=== PATIENT | female | born 1945 | race Caucasian/White ===

== ENCOUNTER 2018-11-11 11:58 | Emergency (ER) | payer MEDICARE ==
[2018-11-11 13:52] LABS: BILIRUBIN,URINE Negative (NEGATIVE); COLOR,URINE Yellow (YELLOW); GLUCOSE, URINE (UA) Negative (NEGATIVE); KETONES,URINE Negative (NEGATIVE); LEUKOCYTE ESTERASE ,URINE Large (NEGATIVE); NITRATE,URINE Negative (NEGATIVE); OCCULT BLOOD,URINE Negative (NEGATIVE); PH,URINE 5.5 (5.0-8.0); PROTEIN,URINE Negative (NEGATIVE); UROBILINOGEN,URINE 0.2 mg/dL (0.2-1.0)
[2018-11-11] MEDS ORDERED: MECLIZINE HCL 25 MG TABLET ONE (13:58)
[2018-11-11 14:03] LABS: BASOPHILS % (AUTO) 1.1 % (0.0-5.0); EOSINOPHILS % (AUTO) 0.4 % (0.0-8.0); HEMATOCRIT 41.7 % (36-48); LYMPHOCYTES % (AUTO) 24.6 % (21.0-51.0); MEAN CORPUSCULAR HEMOGLOBIN 29.6 pg (27.0-33.0); MEAN CORPUSCULAR HGB CONC 33.6 g/dL (32.0-36.0); MEAN CORPUSCULAR VOLUME 88.1 fL (79-99); MONOCYTES % (AUTO) 4.7 % (3.0-13.0); NEUTROPHILS % (AUTO) 69.2 % (40.0-77.0); NUCLEATED RED BLOOD CELLS 0.1 % (0.0-0.19); PLATELET COUNT (AUTO) 262 K/uL (130-400); RED BLOOD CELL COUNT(AUTO) 4.73 MIL/uL (4.00-5.50); RED CELL DISTRIBUTION WIDTH 13.3 % (11.0-15.5); WHITE BLOOD COUNT (AUTO) 7.5 K/uL (4.8-10.8)
[2018-11-11 14:04] LABS: APPEARANCE,URINE SLIGHTLY CLOUDY (CLEAR)
[2018-11-11 14:05] LABS: BACTERIA,URINE Few /HPF (None Seen); RBC,URINE 0-1 /HPF (0-1)
[2018-11-11 14:19] LABS: CREATININE 1.1 mg/dL (0.5-1.5); POTASSIUM 3.6 mmol/L (3.5-5.1)
[2018-11-11 14:21] LABS: INR 0.95 (0.85-1.15)
[2018-11-11 14:24] LABS: ALBUMIN 3.9 g/dL (3.5-5.0); BILIRUBIN,TOTAL 0.5 mg/dL (0.2-1.0); TOTAL PROTEIN, SERUM 8.1 g/dL (6.0-8.3)
[2018-11-11] MEDS ORDERED: SODIUM CHLORIDE 0.9% 1000ML 1,000 ML IV ONE (15:14)
[2018-11-11] MEDS ORDERED: DIAZEPAM 5 MG TABLET ONE (16:39)
== END 2018-11-11 18:31 | disposition home or self-care (01) ==
LOC: EDH 11:58
DX: H81.10 Benign paroxysmal vertigo, unspecified ear (principal); I10 Essential (primary) hypertension; E11.9 Type 2 diabetes mellitus without complications; E78.5 Hyperlipidemia, unspecified; Z87.442 Personal history of urinary calculi; Z98.890 Other specified postprocedural states; Z87.891 Personal history of nicotine dependence; Z88.5 Allergy status to narcotic agent
CPT/HCPCS: 36415; 70450; 71046; 72125; 80053; 81001; 82550; 83880; 84484 ×2; 85025; 85610; 85730; 93005 ×2; 99284; J7030

== ENCOUNTER 2021-03-28 22:42 | Observation (INO) | payer MEDICARE ==
[~2021-03-28] VITALS: Ht 177.8 cm; Wt 68.0 kg
[2021-03-28 22:44] VITALS: BP 140/80
[2021-03-28 23:03] LABS: HEMATOCRIT 42.5 % (36-48); MEAN CORPUSCULAR HEMOGLOBIN 30.6 pg (27.0-33.0); MEAN CORPUSCULAR HGB CONC 33.6 g/dL (32.0-36.0); MEAN CORPUSCULAR VOLUME 90.8 fL (79-99); RED BLOOD CELL COUNT(AUTO) 4.68 MIL/uL (4.00-5.50); WHITE BLOOD COUNT (AUTO) 4.7 K/uL (4.8-10.8)
[2021-03-28 23:14] LABS: CREATININE 0.9 mg/dL (0.5-1.5); POTASSIUM 3.8 mmol/L (3.5-5.1)
[2021-03-28 23:18] LABS: ALBUMIN 3.8 g/dL (3.5-5.0); BILIRUBIN,TOTAL 0.4 mg/dL (0.2-1.0)
[2021-03-29] VITALS (8 sets, daily range): BP systolic 97–137; BP diastolic 51–71
[2021-03-29] MEDS ORDERED: SOLU-MEDROL 125MG VIAL IVP ONE (01:00)
[2021-03-29] MEDS ORDERED: IPRATROPIUM/ALBUTEROL SULFATE 3 ML SOLUTION IH ONE (01:00)
[2021-03-29] MEDS ORDERED: CEFTRIAXONE 1G VIAL IVP ONE (01:00)
[2021-03-29] MEDS ORDERED: AZITHROMYCIN 500MG VIAL IVPB ONE (01:00)
[2021-03-29] MEDS ORDERED: 0.9% NACL 250ML IVPB ONE (01:00)
[2021-03-29 01:13] LABS: ABG BASE EXCESS -0.2 mmol/L (-2.0-3.0); ABG HCO3 23.3 mmol/L (21.0-28.0); ABG OXYGEN SATURATION 91.2 % (95.0-99.0); ABG PCO2 35 mmHg (32-45)
[2021-03-29 01:21] LABS: INR 0.99 (0.85-1.15); PROTHROMBIN TIME 10.8 SEC (9.6-11.6)
[2021-03-29] MEDS ORDERED: ALBUTEROL 0.083% 2.5 MG/3 ML INH IH ONE ×2 (01:30→03:00)
[2021-03-29] MEDS ORDERED: AZITHROMYCIN 500MG+NS 250ML 250 ML IV ONE (01:30)
[2021-03-29] MEDS ORDERED: LACTULOSE 20 GM/30 ML UDCUP PO PRN (03:30)
[2021-03-29] MEDS ORDERED: GUAIFENESIN-DM 200/20 MG 10 ML PO PRN (03:30)
[2021-03-29] MEDS ORDERED: NITROGLYCERIN 0.4 MG SL TAB SL PRN (03:30)
[2021-03-29] MEDS ORDERED: ONDANSETRON 4MG INJ IV PRN (03:30)
[2021-03-29] MEDS ORDERED: ACETAMINOPHEN 325 MG TAB PO PRN ×2 (03:30)
[2021-03-29] MEDS ORDERED: MAG/ALUM/SIMETH 30 ML UDCUP PO PRN (03:30)
[2021-03-29] MEDS ORDERED: ZOLPIDEM TARTRATE 5 MG TAB PO PRN (03:30)
[2021-03-29] MEDS ORDERED: GLUCAGON 1MG KIT 1 MG ML IM PRN (04:00)
[2021-03-29] MEDS ORDERED: MAGNESIUM 2GM PREMIX 50ML 50 ML IV PRN (04:00)
[2021-03-29] MEDS ORDERED: POTASSIUM CHLORIDE 20MEQ/100ML 100 ML IV PRN (04:00)
[2021-03-29] MEDS ORDERED: KCL 20 MEQ ERTAB PO PRN (04:00)
[2021-03-29] MEDS ORDERED: DEXTROSE 50%-WATER 50 ML DISP.SYRIN IV PRN (04:00)
[2021-03-29] MEDS ORDERED: POTASSIUM CHLORIDE 10% ELIXIR 20 MEQ/15 ML UDCUP PO PRN (04:00)
[2021-03-29] MEDS ORDERED: 0.9% NACL 250ML IVPB SCH (04:00)
[2021-03-29] MEDS ORDERED: LABETALOL 20MG SYG IV PRN (04:30)
[2021-03-29 05:05] LABS: BASOPHILS % (AUTO) 0.2 % (0.0-5.0); EOSINOPHILS % (AUTO) 0.2 % (0.0-8.0); HEMATOCRIT 42.9 % (36-48); LYMPHOCYTES % (AUTO) 12.8 % (21.0-51.0); MEAN CORPUSCULAR HEMOGLOBIN 30.5 pg (27.0-33.0); MEAN CORPUSCULAR HGB CONC 33.1 g/dL (32.0-36.0); MEAN CORPUSCULAR VOLUME 92.3 fL (79-99); MONOCYTES % (AUTO) 2.4 % (3.0-13.0); PLATELET COUNT (AUTO) 162 K/uL (130-400); RED BLOOD CELL COUNT(AUTO) 4.65 MIL/uL (4.00-5.50); RED CELL DISTRIBUTION WIDTH 13.1 % (11.0-15.5); WHITE BLOOD COUNT (AUTO) 4.5 K/uL (4.8-10.8)
[2021-03-29 05:23] LABS: ALBUMIN 3.8 g/dL (3.5-5.0); BILIRUBIN,TOTAL 0.2 mg/dL (0.2-1.0); CRP QUANTITATIVE 4.3 mg/L (0.00-9.0); POTASSIUM 4.1 mmol/L (3.5-5.1); TOTAL PROTEIN, SERUM 7.4 g/dL (6.0-8.3)
[2021-03-29] MEDS ORDERED: 0.9% NACL 500ML IV.SOLN 500 ML IV ONE (06:00)
[2021-03-29] MEDS ORDERED: IOHEXOL-350 75 ML VIAL IV ONE (06:07)
[2021-03-29] MEDS: IPRATROPIUM/ALBUTEROL SULFATE 3 ML SOLUTION IH SCH ×5 (06:33→22:37)
[2021-03-29] MEDS ORDERED: SOLU-MEDROL 40MG VIAL IVP SCH ×2 (08:00→14:00)
[2021-03-29] MEDS: FAMOTIDINE 20MG VIAL IV SCH (08:51)
[2021-03-29] MEDS: LOSARTAN 25 MG TABLET PO SCH (08:52)
[2021-03-29] MEDS: ASPIRIN 81MG CHEW TAB PO SCH (08:52)
[2021-03-29] MEDS: ENOXAPARIN SODIUM 30 MG/0.3 ML SQ SCH (08:54)
[2021-03-29] MEDS ORDERED: SIMV40TA59 PO (08:57)
[2021-03-29] MEDS ORDERED: OLME20TA22 PO (10:46)
[2021-03-29] MEDS ORDERED: LINA5TAB PO (10:48)
[2021-03-29] MEDS ORDERED: BENZONATATE 100 MG CAPSULE PO PRN (13:00)
[2021-03-29] MEDS ORDERED: LORAZEPAM 0.5 MG TABLET PO PRN (13:00)
[2021-03-29] MEDS: SOLU-MEDROL 40MG VIAL IVP SCH (14:00)
[2021-03-29] MEDS ORDERED: CEFTRIAXONE 1G VIAL IVP SCH (14:00)
[2021-03-29] MEDS ORDERED: AZITHROMYCIN 500MG+NS 250ML 250 ML IV SCH (15:00)
[2021-03-29] MEDS ORDERED: AZITHROMYCIN 500MG VIAL IVPB SCH (15:00)
[2021-03-29] MEDS ORDERED: ATORVASTATIN 40 MG TABLET PO SCH (21:00)
[2021-03-30] MEDS: IPRATROPIUM/ALBUTEROL SULFATE 3 ML SOLUTION IH SCH ×4 (02:29→13:23)
[2021-03-30 03:56] VITALS: BP 129/68
[2021-03-30 06:26] LABS: APPEARANCE,URINE Clear (CLEAR); BILIRUBIN,URINE Negative (NEGATIVE); COLOR,URINE Yellow (YELLOW); GLUCOSE, URINE (UA) 500 mg/dL (NEGATIVE); KETONES,URINE Trace mg/dL (NEGATIVE); LEUKOCYTE ESTERASE ,URINE Negative (NEGATIVE); NITRATE,URINE Negative (NEGATIVE); OCCULT BLOOD,URINE Negative (NEGATIVE); PROTEIN,URINE Trace mg/dL (NEGATIVE)
[2021-03-30 06:37] LABS: BACTERIA,URINE None Seen /HPF (None Seen); RBC,URINE 0-1 /HPF (0-1); SQUAMOUS EPITHELIAL CELL,UR 0-2 /HPF (0-2); WBC,URINE 0-1 /HPF (0-1)
[2021-03-30 07:20] VITALS: BP 111/51
[2021-03-30] MEDS: ASPIRIN 81MG CHEW TAB PO SCH (08:09)
[2021-03-30] MEDS: FAMOTIDINE 20MG VIAL IV SCH (08:09)
[2021-03-30] MEDS: ENOXAPARIN SODIUM 30 MG/0.3 ML SQ SCH (08:09)
[2021-03-30] MEDS: LOSARTAN 25 MG TABLET PO SCH (08:11)
[2021-03-30] MEDS ORDERED: LEVOFLOXACIN 500 MG TABLET PO SCH (09:00)
[2021-03-30 10:58] VITALS: BP 139/72
[2021-03-30] MEDS: SOLU-MEDROL 40MG VIAL IVP SCH (13:23)
== END 2021-03-30 14:50 | disposition home or self-care (01) ==
LOC: EDH 22:42 → EDHIP 03-29 03:05 → 3AH 03-29 15:16
PROVIDERS: ADMIT Internal Medicine Critical Care Medicine; ATTEND Internal Medicine Critical Care Medicine
DX: J96.01 Acute respiratory failure with hypoxia (principal); Z20.822 Contact with and (suspected) exposure to COVID-19; J43.9 Emphysema, unspecified; I10 Essential (primary) hypertension; E78.5 Hyperlipidemia, unspecified; E11.9 Type 2 diabetes mellitus without complications; F17.210 Nicotine dependence, cigarettes, uncomplicated; M81.0 Age-related osteoporosis without current pathological fracture; R11.2 Nausea with vomiting, unspecified; Z79.899 Other long term (current) drug therapy; Z98.890 Other specified postprocedural states
CPT/HCPCS: 36415 ×2; 36600; 71045; 71275; 80053 ×2; 81001; 82803; 82948 ×3; 83880; 84145; 84484 ×2; 85025; 85027; 85378; 85610; 86140; 87040 ×2; 87635; 87804 ×2; 93005 ×2; 94640 ×12; 94664; 94760 ×2; 96361; 96365; 96372; 96375; 96376 ×2; 99285; C9803; G0378 ×33; J0456; J0696; J1650; J2920 ×2; J2930; J3490 ×2; Q9967

== ENCOUNTER 2021-04-26 18:55 | Inpatient (IN) | payer MEDICARE ==
[~2021-04-26] VITALS: Ht 177.8 cm; Wt 68.5 kg
[~2021-04-26 18:55] MED LIST: LINA5TAB PO; OLME20TA22 PO; SIMV40TA59 PO
[2021-04-26 19:44] VITALS: BP 133/64
[2021-04-26] MEDS ORDERED: LACTATED RINGERS 1000ML 500 ML IV ONE (20:00)
[2021-04-26] MEDS ORDERED: LACTATED RINGERS 1000ML 1,000 ML IV ONE (20:00)
[2021-04-26 20:37] LABS: BASOPHILS % (AUTO) 0.3 % (0.0-5.0); EOSINOPHILS % (AUTO) 0.3 % (0.0-8.0); HEMATOCRIT 40.5 % (36-48); LYMPHOCYTES % (AUTO) 27.7 % (21.0-51.0); MEAN CORPUSCULAR HEMOGLOBIN 29.7 pg (27.0-33.0); MEAN CORPUSCULAR HGB CONC 32.8 g/dL (32.0-36.0); MEAN CORPUSCULAR VOLUME 90.4 fL (79-99); MONOCYTES % (AUTO) 9.3 % (3.0-13.0); NEUTROPHILS % (AUTO) 61.5 % (40.0-77.0); PLATELET COUNT (AUTO) 118 K/uL (130-400); RED BLOOD CELL COUNT(AUTO) 4.48 MIL/uL (4.00-5.50); RED CELL DISTRIBUTION WIDTH 13.4 % (11.0-15.5); WHITE BLOOD COUNT (AUTO) 3.2 K/uL (4.8-10.8)
[2021-04-26 20:42] LABS: ABG BASE EXCESS 1.5 mmol/L (-2.0-3.0); ABG OXYGEN SATURATION 94.6 % (95.0-99.0); ABG PCO2 25 mmHg (32-45)
[2021-04-26 20:51] LABS: CREATININE 1.1 mg/dL (0.5-1.5); POTASSIUM 3.7 mmol/L (3.5-5.1)
[2021-04-26 20:54] LABS: INR 0.97 (0.85-1.15); PROTHROMBIN TIME 10.6 SEC (9.6-11.6)
[2021-04-26 20:55] LABS: ALBUMIN 3.2 g/dL (3.5-5.0); BILIRUBIN,TOTAL 0.6 mg/dL (0.2-1.0); CRP QUANTITATIVE 46.6 mg/L (0.00-9.0); MAGNESIUM 1.8 mg/dL (1.80-2.40)
[2021-04-26] MEDS ORDERED: ENOXAPARIN SODIUM 80 MG/0.8 ML SQ ONE (21:30)
[2021-04-26] MEDS ORDERED: 0.9% NACL 250ML IVPB ONE (21:30)
[2021-04-26] MEDS ORDERED: AZITHROMYCIN 500MG+NS 250ML IV ONE (21:30)
[2021-04-26] MEDS ORDERED: LEVOFLOXACIN 500 MG/D5W 100 ML 100 ML IV SCH (21:30)
[2021-04-26] MEDS ORDERED: AZITHROMYCIN 500MG+NS 250ML 250 ML IV ONE (22:35)
[2021-04-26] MEDS ORDERED: ERGOCALCIFEROL (VITAMIN D2) 50,000 UNIT CAPSULE PO ONE (23:00)
[2021-04-26] MEDS: DEXAMETHASONE SOD PHOSPHATE 4 MG/ML 1ML VIAL IVP SCH (23:20)
[2021-04-26] MEDS: CEFTRIAXONE 1G VIAL IVP SCH (23:20)
[2021-04-27] MEDS ORDERED: ERGOCALCIFEROL (VITAMIN D2) 50,000 UNIT CAPSULE ONE (00:24)
[2021-04-27 00:35] VITALS: BP 98/58
[2021-04-27] MEDS: DOXYCYCLINE 100MG+NS 250ML IV SCH ×2 (00:35→10:25)
[2021-04-27 04:47] VITALS: BP 110/56
[2021-04-27 06:40] VITALS: BP 105/65
[2021-04-27 07:05] LABS: BASOPHILS % (AUTO) 0.8 % (0.0-5.0); HEMATOCRIT 39.3 % (36-48); LYMPHOCYTES % (AUTO) 33.2 % (21.0-51.0); MEAN CORPUSCULAR HEMOGLOBIN 29.8 pg (27.0-33.0); MEAN CORPUSCULAR HGB CONC 33.3 g/dL (32.0-36.0); MEAN CORPUSCULAR VOLUME 89.3 fL (79-99); MONOCYTES % (AUTO) 4.6 % (3.0-13.0); NEUTROPHILS % (AUTO) 59.7 % (40.0-77.0); PLATELET COUNT (AUTO) 118 K/uL (130-400); RED CELL DISTRIBUTION WIDTH 13.2 % (11.0-15.5); WHITE BLOOD COUNT (AUTO) 2.4 K/uL (4.8-10.8)
[2021-04-27 07:17] LABS: ALBUMIN 2.7 g/dL (3.5-5.0); BILIRUBIN,TOTAL 0.4 mg/dL (0.2-1.0); CREATININE 1.1 mg/dL (0.5-1.5); CRP QUANTITATIVE 51.4 mg/L (0.00-9.0); POTASSIUM 4.3 mmol/L (3.5-5.1); TOTAL PROTEIN, SERUM 6.4 g/dL (6.0-8.3)
[2021-04-27 08:00] VITALS: BP 123/57
[2021-04-27 08:16] LABS: BAND NEUTROPHILS % (MANUAL) 2 % (0-2); LYMPHOCYTES % (MANUAL) 21 % (22-44); MAN.DIFF COMMENT-IMPRESSION MANUAL DIFFERENTIAL; MONOCYTES % (MANUAL) 1 % (2-9); REACTIVE LYMPHOCYTES 5 % (0-0); SEGMENTED NEUTROPHILS % 71 % (40-70)
[2021-04-27 08:33] LABS: PLATELET MORPHOLOGY COMMENT DECREASED
[2021-04-27] MEDS ORDERED: IOHEXOL 350 MG/ML 100ML INFUS..BTL IV ONE ×2 (08:34→10:22)
[2021-04-27] MEDS: ACETYLCYSTEINE 600 MG CAPSULE PO SCH ×2 (10:23→20:45)
[2021-04-27] MEDS: FAMOTIDINE 20MG VIAL IV SCH ×2 (10:23→20:45)
[2021-04-27] MEDS: ZINC SULFATE 220 CAPSULE PO SCH (10:24)
[2021-04-27] MEDS: ASCORBIC ACID 500 MG TAB PO SCH (10:24)
[2021-04-27] MEDS: BENZONATATE 100 MG CAPSULE PO SCH ×3 (10:24→20:45)
[2021-04-27] MEDS: CEFTRIAXONE 1G VIAL IVP SCH (10:25)
[2021-04-27] MEDS: ENOXAPARIN SODIUM 30 MG/0.3 ML SQ SCH (10:25)
[2021-04-27] MEDS ORDERED: IPRATROPIUM/ALBUTEROL SULFATE 3 ML SOLUTION IH PRN (12:30)
[2021-04-27] MEDS: LINAGLIPTIN 5 MG TABLET PO SCH (13:32)
[2021-04-27 20:00] VITALS: BP 117/49
[2021-04-27] MEDS ORDERED: MONTELUKAST SODIUM 10 MG TAB PO SCH (21:00)
[2021-04-28] MEDS: CEFTRIAXONE 1G VIAL IVP SCH ×2 (00:11→11:32)
[2021-04-28] MEDS: DEXAMETHASONE SOD PHOSPHATE 4 MG/ML 1ML VIAL IVP SCH (00:11)
[2021-04-28] MEDS: DOXYCYCLINE 100MG+NS 250ML IV SCH ×2 (00:12→11:32)
[2021-04-28 00:40] VITALS: BP 125/66
[2021-04-28 01:04] VITALS: BP 146/78
[2021-04-28 04:23] VITALS: BP 114/61
[2021-04-28 06:15] LABS: BASOPHILS % (AUTO) 0.2 % (0.0-5.0); HEMATOCRIT 37.2 % (36-48); LYMPHOCYTES % (AUTO) 18.1 % (21.0-51.0); MEAN CORPUSCULAR HEMOGLOBIN 29.6 pg (27.0-33.0); MEAN CORPUSCULAR HGB CONC 33.3 g/dL (32.0-36.0); MEAN CORPUSCULAR VOLUME 88.8 fL (79-99); MONOCYTES % (AUTO) 5.8 % (3.0-13.0); NEUTROPHILS % (AUTO) 74.9 % (40.0-77.0); PLATELET COUNT (AUTO) 130 K/uL (130-400); RED BLOOD CELL COUNT(AUTO) 4.19 MIL/uL (4.00-5.50); WHITE BLOOD COUNT (AUTO) 4.8 K/uL (4.8-10.8)
[2021-04-28 06:34] LABS: ALBUMIN 2.5 g/dL (3.5-5.0); BILIRUBIN,TOTAL 0.3 mg/dL (0.2-1.0); CREATININE 0.8 mg/dL (0.5-1.5); CRP QUANTITATIVE 20.4 mg/L (0.00-9.0); POTASSIUM 4.6 mmol/L (3.5-5.1); TOTAL PROTEIN, SERUM 5.9 g/dL (6.0-8.3)
[2021-04-28 07:36] VITALS: BP 120/59
[2021-04-28] MEDS ORDERED: FAMOTIDINE 20MG TAB PO SCH (09:00)
[2021-04-28] MEDS ORDERED: DEXAMETHASONE 4 MG TAB PO SCH (09:00)
[2021-04-28] MEDS: ZINC SULFATE 220 CAPSULE PO SCH (09:07)
[2021-04-28] MEDS: BENZONATATE 100 MG CAPSULE PO SCH ×2 (09:07→14:20)
[2021-04-28] MEDS: ACETYLCYSTEINE 600 MG CAPSULE PO SCH (09:07)
[2021-04-28] MEDS: ASCORBIC ACID 500 MG TAB PO SCH (09:07)
[2021-04-28] MEDS: LINAGLIPTIN 5 MG TABLET PO SCH (09:07)
[2021-04-28] MEDS: ENOXAPARIN SODIUM 30 MG/0.3 ML SQ SCH (09:09)
[2021-04-28] MEDS ORDERED: PANT40TA54 PO (10:50)
[2021-04-28] MEDS ORDERED: ZINC220C6 PO (10:50)
[2021-04-28] MEDS ORDERED: MONT10TA21 PO (10:50)
[2021-04-28] MEDS ORDERED: BENZ-70 PO (10:50)
[2021-04-28] MEDS ORDERED: ASCO500T20 PO (10:50)
[2021-04-28] MEDS ORDERED: AEC81 PO (10:50)
[2021-04-28] MEDS ORDERED: DEXA6TAB PO (10:50)
[2021-04-28] MEDS ORDERED: DOXY100C5 PO (10:50)
[2021-04-28 12:51] VITALS: BP 141/71
== END 2021-04-28 17:30 | disposition home or self-care (01) | DRG 177 ==
LOC: EDH 18:55 → EDHIP 22:52 → 4BH 04-28 01:26
PROVIDERS: ADMIT Internal Medicine; ATTEND Internal Medicine
DX: U07.1 COVID-19 (principal); J96.01 Acute respiratory failure with hypoxia; J12.82 Pneumonia due to coronavirus disease 2019; J43.9 Emphysema, unspecified; E78.5 Hyperlipidemia, unspecified; I10 Essential (primary) hypertension; M81.0 Age-related osteoporosis without current pathological fracture; F17.200 Nicotine dependence, unspecified, uncomplicated; E11.9 Type 2 diabetes mellitus without complications; E78.00 Pure hypercholesterolemia, unspecified; Z93.6 Other artificial openings of urinary tract status; Z88.5 Allergy status to narcotic agent; Z83.3 Family history of diabetes mellitus; Z80.9 Family history of malignant neoplasm, unspecified; Z82.49 Family history of ischemic heart disease and other diseases of the circulatory system
CPT/HCPCS: 36415; 36600; 71045; 71275; 80053; 82550; 82728; 82803; 82948; 83605; 83615; 83735; 84145; 84484; 85025; 85378; 85610; 85730; 86140; 87040; 87426; 87804; 93005; 93970; 94760; G0378; J0456; J0696; J1100; J1650; J1956; J3490; J8540; Q9967

== ENCOUNTER → 2022-04-28 | Outpatient (CLI) | payer MEDICARE ==
[~2022-04-28] MED LIST changes: +AEC81 PO; +ASCO500T20 PO; +BENZ-70 PO; +DEXA6TAB PO; +DOXY100C5 PO; +MONT10TA21 PO; +PANT40TA54 PO; +ZINC220C6 PO
== END | disposition home or self-care (01) ==
LOC: OIH 09:30
PROVIDERS: ATTEND Internal Medicine Cardiovascular Disease
DX: E78.5 Hyperlipidemia, unspecified (principal); R06.00 Dyspnea, unspecified; E11.9 Type 2 diabetes mellitus without complications
CPT/HCPCS: 93306

== ENCOUNTER → 2022-05-10 | Outpatient (CLI) | payer MEDICARE ==
[~2022-05-10] MED LIST changes: +REGADENOSON 0.4 MG/5 ML PF SYG IVP SCH
== END | disposition home or self-care (01) ==
LOC: SHCH 07:45
PROVIDERS: ATTEND Internal Medicine Cardiovascular Disease
DX: R07.9 Chest pain, unspecified (principal)
CPT/HCPCS: 78452; 96374; 93017; J2785; A9500 ×2

== ENCOUNTER → 2024-03-20 | Outpatient (CLI) | payer MEDICARE ==
[~2024-03-20] MED LIST changes: +ATOR40TA69 PO; -BENZ-70 PO; +CLOP-31 PO; -DEXA6TAB PO; -DOXY100C5 PO; +LOSA25TA41 PO; -MONT10TA21 PO; -OLME20TA22 PO; +OLME20TA68 PO; -PANT40TA54 PO; -REGADENOSON 0.4 MG/5 ML PF SYG IVP SCH; -SIMV40TA59 PO; -ZINC220C6 PO
[2024-03-20 12:29] LABS: CHOLESTEROL 109 mg/dL (<200); HDL CHOLESTEROL 67 mg/dL (35-85); LDL DIRECT 39 mg/dL (0-99); TRIGLYCERIDES 108 mg/dL (30-200)
== END | disposition home or self-care (01) ==
LOC: LAB 08:26
PROVIDERS: ATTEND Internal Medicine Cardiovascular Disease
DX: E78.5 Hyperlipidemia, unspecified (principal)
CPT/HCPCS: 36415; 80061

== ENCOUNTER 2024-04-11 07:38 | Day surgery (SDC) | payer MEDICARE ==
[2024-04-09 11:24] LABS: BASOPHILS # (AUTO) 0.03 K/uL (0.00-0.20); BASOPHILS % (AUTO) 0.5 % (0.0-5.0); EOSINOPHILS # (AUTO) 0.16 K/uL (0.00-0.70); EOSINOPHILS % (AUTO) 2.7 % (0.0-8.0); HEMATOCRIT 41.9 % (36-48); IMMATURE GRANULOCYTE ABSOLUTE 0.03 K/uL (0-1); LYMPHOCYTES # (AUTO) 1.8 K/uL (1.0-4.8); LYMPHOCYTES % (AUTO) 30.8 % (21.0-51.0); MEAN CORPUSCULAR HEMOGLOBIN 29.7 pg (27.0-33.0); MEAN CORPUSCULAR HGB CONC 32.7 g/dL (32.0-36.0); MEAN CORPUSCULAR VOLUME 90.7 fL (79-99); MONOCYTES # (AUTO) 0.3 K/uL (0.1-1.0); MONOCYTES % (AUTO) 5.8 % (3.0-13.0); NEUTROPHILS # (AUTO) 3.5 K/uL (1.8-7.7); NEUTROPHILS % (AUTO) 59.7 % (40.0-77.0); PLATELET COUNT (AUTO) 242 K/uL (130-400); RED BLOOD CELL COUNT(AUTO) 4.62 MIL/uL (4.00-5.50); RED CELL DISTRIBUTION WIDTH 12.7 % (11.0-15.5); WHITE BLOOD COUNT (AUTO) 5.9 K/uL (4.8-10.8)
[2024-04-09 11:26] LABS: APPEARANCE,URINE CLEAR (CLEAR); BILIRUBIN,URINE NEGATIVE (NEGATIVE); COLOR,URINE YELLOW (YELLOW); GLUCOSE, URINE (UA) NEGATIVE (NEGATIVE); KETONES,URINE NEGATIVE (NEGATIVE); LEUKOCYTE ESTERASE ,URINE 75 Leu/uL (NEGATIVE); NITRATE,URINE NEGATIVE (NEGATIVE); PROTEIN,URINE NEGATIVE (NEGATIVE); UROBILINOGEN,URINE 0.2 mg/dL (0.2-1.0)
[2024-04-09 11:34] VITALS: BP 140/71; PULSE 72; RESP 16
[2024-04-09 11:34] LABS: ADD UA MICROSCOPIC YES
[2024-04-09 11:35] LABS: CREATININE 1.1 mg/dL (0.5-1.0); POTASSIUM 4.2 mmol/L (3.5-5.1)
[2024-04-09 11:37] LABS: MUCUS,URINE RARE LPF (None Seen); SQUAMOUS EPITHELIAL CELL,UR FEW /HPF (0-2)
[2024-04-09 11:53] LABS: B-TYPE NATRIURETIC PEPTIDE 19 pg/mL (0-100)
[2024-04-09 12:39] LABS: INR 1.01 (0.85-1.15); PROTHROMBIN TIME 10.9 SEC (9.6-11.6)
[2024-04-09 12:41] LABS: PARTIAL THROMBOPLASTIN TIME 26.5 SEC (26.3-35.5)
[2024-04-11] VITALS (11 sets, daily range): BP systolic 129–149; BP diastolic 68–86; PULSE 67–90; RESP 12–18
[~2024-04-11] VITALS: Ht 175.3 cm; Wt 72.3 kg
[~2024-04-11 07:38] MED LIST changes: -ASCO500T20 PO; -CLOP-31 PO; +EZET10TA48 PO; -LINA5TAB PO; -LOSA25TA41 PO; +TIRZ5PEN SQ
[2024-04-11] MEDS ORDERED: IOHEXOL-350 50ML VIAL IV ONE (09:25)
[2024-04-11] MEDS ORDERED: IOHEXOL 350 MG/ML 100ML INFUS..BTL IV ONE (09:25)
[2024-04-11] MEDS ORDERED: LIDOCAINE HCL 400MG/20ML VIAL ONE (09:25)
[2024-04-11] MEDS ORDERED: HEPARIN 10,000 UNIT/10ML (1,000 UNIT/ML) VIAL ONE (09:25)
[2024-04-11] MEDS ORDERED: MIDAZOLAM HCL 1 MG/ML 2ML VIAL ONE (09:49)
[2024-04-11] MEDS: 0.9%NACL 1000ML 1,000 ML IV SCH (10:38)
[2024-04-11] MEDS: CLOPIDOGREL 300MG TAB PO ONE (10:54)
[2024-04-11] MEDS ORDERED: DEXTROSE 50%-WATER 50 ML DISP.SYRIN IV PRN (11:00)
[2024-04-11] MEDS ORDERED: GLUCAGON 1MG KIT 1 MG ML IM PRN (11:00)
[2024-04-11] MEDS ORDERED: CLOP-31 PO (13:52)
== END 2024-04-11 16:00 | disposition home or self-care (01) ==
LOC: DAH 07:38
PROVIDERS: ATTEND Internal Medicine Cardiovascular Disease
DX: I25.118 Atherosclerotic heart disease of native coronary artery with other forms of angina pectoris (principal); I10 Essential (primary) hypertension; E11.9 Type 2 diabetes mellitus without complications; I25.2 Old myocardial infarction; E78.5 Hyperlipidemia, unspecified; Z88.5 Allergy status to narcotic agent; Z79.82 Long term (current) use of aspirin; Z79.01 Long term (current) use of anticoagulants; Z79.899 Other long term (current) drug therapy
CPT/HCPCS: 80048; 83880; 85025; 85610; 85730; 87086; 81001; 36415; 71045; 93005; 92920; 93454; C1769; C1887; C1894; C1760; C1725; J3490; J7030; J1644 ×2; J2250; Q9967 ×2; A4215; A4222; A4221; A4663; A4216; A4606; A4223 ×3; 99156; 99157

== ENCOUNTER → 2024-04-24 | Outpatient (CLI) | payer MEDICARE ==
[~2024-04-24] MED LIST changes: +CLOP-31 PO
== END | disposition home or self-care (01) ==
LOC: LAB 13:00
PROVIDERS: ATTEND Internal Medicine Cardiovascular Disease
DX: I10 Essential (primary) hypertension (principal); E78.5 Hyperlipidemia, unspecified; R06.02 Shortness of breath; E55.9 Vitamin D deficiency, unspecified
CPT/HCPCS: 36415; 82306; 84443

== ENCOUNTER → 2024-05-30 | Outpatient (CLI) | payer MEDICARE | END | disposition home or self-care (01) | LOC: LAB 10:30 | PROVIDERS: ATTEND Internal Medicine Cardiovascular Disease | DX: I10 Essential (primary) hypertension (principal); E78.5 Hyperlipidemia, unspecified; R06.02 Shortness of breath; E55.9 Vitamin D deficiency, unspecified | CPT/HCPCS: 82306 ==

== ENCOUNTER 2024-08-29 07:34 | Observation (INO) | payer MEDICARE ==
[2024-08-27 12:16] LABS: BASOPHILS # (AUTO) 0.03 K/uL (0.00-0.20); BASOPHILS % (AUTO) 0.6 % (0.0-5.0); EOSINOPHILS % (AUTO) 1.9 % (0.0-8.0); HEMATOCRIT 42.4 % (36-48); IMMATURE GRANULOCYTE ABSOLUTE 0.02 K/uL (0-1); LYMPHOCYTES # (AUTO) 1.8 K/uL (1.0-4.8); LYMPHOCYTES % (AUTO) 33.3 % (21.0-51.0); MEAN CORPUSCULAR HEMOGLOBIN 29.6 pg (27.0-33.0); MEAN CORPUSCULAR HGB CONC 32.5 g/dL (32.0-36.0); MEAN CORPUSCULAR VOLUME 90.8 fL (79-99); MONOCYTES # (AUTO) 0.4 K/uL (0.1-1.0); NEUTROPHILS % (AUTO) 56.8 % (40.0-77.0); PLATELET COUNT (AUTO) 216 K/uL (130-400); RED BLOOD CELL COUNT(AUTO) 4.67 MIL/uL (4.00-5.50); RED CELL DISTRIBUTION WIDTH 12.6 % (11.0-15.5); WHITE BLOOD COUNT (AUTO) 5.3 K/uL (4.8-10.8)
[2024-08-27 12:19] LABS: APPEARANCE,URINE CLEAR (CLEAR); BILIRUBIN,URINE NEGATIVE (NEGATIVE); COLOR,URINE LIGHT-YELLOW (YELLOW); GLUCOSE, URINE (UA) NEGATIVE (NEGATIVE); KETONES,URINE NEGATIVE (NEGATIVE); LEUKOCYTE ESTERASE ,URINE NEGATIVE Leu/uL (NEGATIVE); NITRATE,URINE NEGATIVE (NEGATIVE); OCCULT BLOOD,URINE NEGATIVE (NEGATIVE); PH,URINE 5.5 (5.0-8.0); PROTEIN,URINE NEGATIVE (NEGATIVE); UROBILINOGEN,URINE 0.2 mg/dL (0.2-1.0)
[2024-08-27 12:20] LABS: ADD UA MICROSCOPIC NO
[2024-08-27 12:31] LABS: INR <= 0.93 (0.85-1.15); PROTHROMBIN TIME 10.4 SEC (9.6-11.6)
[2024-08-27 12:33] LABS: PARTIAL THROMBOPLASTIN TIME 25.2 SEC (26.3-35.5)
[2024-08-27 12:34] LABS: POTASSIUM 4.8 mmol/L (3.5-5.1)
[2024-08-27 13:01] LABS: B-TYPE NATRIURETIC PEPTIDE 23 pg/mL (0-100)
[2024-08-27 13:04] VITALS: BP 140/78; PULSE 61; RESP 18; TEMP 97.4
--- NOTE | 2024-08-27 13:40 | HMCIMG ---
CHEST 1VW HISTORY: Preop COMPARISON: 04/09/2024 FINDINGS: A frontal projection of the chest was obtained. No acute pulmonary infiltrates is seen. The heart is borderline enlarged. Prominent interstitial markings are seen. Degenerative changes are seen. Aortic calcifications are seen. IMPRESSION: 1. No acute pulmonary infiltrate is seen.
--- NOTE | 2024-08-27 13:50 | EKG ---
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1945 Requested By: KEITH SIDDIQI Order Number: [id number] Reading MD: Royal Whitten Measurements Intervals [place] Rate: 63 P: 51 VA: 212 QRS: 26 QRSD: 95 T: 57 QT: 412 QTc: 423 Interpretive Statements Sinus rhythm Borderline prolonged VA interval Low voltage, extremity and precordial leads Abnormal T, consider ischemia, anterior leads Compared to ECG 04/09/2024 11:14:59 Low QRS voltage now present T-wave abnormality now present Possible ischemia now present Myocardial infarct finding no longer present Electronically Signed On 08-27-2024 20:58:21 [employer] WORK[employer] by Royal Whitten Please click the below link to view image of tracing.
[2024-08-29] VITALS (16 sets, daily range): BP systolic 97–148; BP diastolic 50–76; PULSE 65–95; RESP 15–20; TEMP 97–98.3
[~2024-08-29] VITALS: Ht 175.3 cm; Wt 72.9 kg
[~2024-08-29 07:34] MED LIST changes: -AEC81 PO; -EZET10TA48 PO; +SITA100T12 PO; -TIRZ5PEN SQ
[2024-08-29] MEDS: 0.9%NACL 1000ML 1,000 ML IV SCH (09:30)
[2024-08-29] MEDS ORDERED: LIDOCAINE HCL 400MG/20ML VIAL ONE (10:00)
[2024-08-29] MEDS ORDERED: IOHEXOL 350 MG/ML 100ML INFUS..BTL IV ONE (10:00)
[2024-08-29] MEDS ORDERED: HEParin-NS 1,000 UNIT/500 ML 1,000 ML IV ONE (10:00)
[2024-08-29] MEDS ORDERED: HEParin 10,000 UNIT/10ML (1,000 UNIT/ML) VIAL ONE (10:00)
[2024-08-29] MEDS ORDERED: ATROPINE 1MG SYG IVP ONE (10:15)
[2024-08-29] MEDS ORDERED: MIDAZOLAM HCL 1 MG/ML 2ML VIAL ONE (10:24)
[2024-08-29] MEDS ORDERED: cloPIDOgrel 75MG TAB ONE (10:55)
[2024-08-29] MEDS ORDERED: ASPIRIN 325MG EC TAB PO ONE (10:55)
[2024-08-29] MEDS ORDERED: hydrALAZine 20MG/ML VIAL ONE (11:02)
[2024-08-29] MEDS ORDERED: ASPI-1197 PO (11:10)
--- NOTE | 2024-08-29 11:14 | PRN ---
Cath Procedure Report CATH PROCEDURE REPORT CARDIAC CATHETERIZATION REPORT Date of Service: Aug 29, 2024 Left heart catheterization and PCI report This patient has had a prior non ST elevation HI with placement of a drug- eluting stent in the circumflex artery. She developed InStent restenosis and had balloon angioplasty. She has now developed recurrent symptoms similar to her initial anginal pain. After informed consent she was prepped and draped in usual fashion. She received a total of 15 cc of 2% xylocaine in the right inguinal area. A six [place] sheath was introduced into the right femoral artery using modified Seldinger technique. She did receive 2 mg of Versed for conscious sedation. A Perry four right six [place] diagnostic catheter was advanced over guidewire to the aortic root. Wire was removed and catheter engaged into the [place] right coronary artery. The right coronary artery was visualized in multiple planes and catheter was removed. A Perry four left six [place] diagnostic catheter was advanced over guidewire to the aortic root. Wire was removed and catheter engaged into the left main coronary artery. The left coronary system was visualized multiple planes and catheter was removed. Findings: The right coronary artery is a right-dominant vessel and has a 30% proximal stenosis. The remainder of the vessel is free of obstruction. The PDA is free of obstruction. The left main coronary artery is a large vessel free of obstruction. The left anterior descending artery extends to the apex and wraps around the apex of the heart and is free of obstruction gives rise to normal diagonal branch. The circumflex artery has a proximal stent before an obtuse marginal artery. The obtuse marginal artery is free of obstruction but the stent has an 80% InStent restenosis at the junction of the proximal 1/3 and distal 2/3 of the stent. That point was decided to proceed with stenting of the InStent restenosis which had occurred after a balloon angioplasty. The patient received 8000 units of heparin and a JL 3.5 six [place] guiding catheter was advanced over guidewire to the aortic root. Wire was removed and catheter engaged into the [place] left main coronary artery. A BMW wire was placed across the area of stenosis into the distal obtuse marginal branch. The stenosis was directly stented with a 2.5 by 12 mm drug-eluting stent to 14 atmospheres. Stenosis was reduced from 80% to 0% with normal JALEESA flow. There was no dissection. Wires and catheter was removed. A sheathogram performed. ACT postprocedure was 290. A Perclose closure device was placed in the entire procedure was well tolerated without complications. Summary: Successful 2.5 by 12 mm drug-eluting stent to the proximal circumflex InStent restenosis Report dictated by KEITH Lundy MD, MD Aug 29, 2024 11:14
[2024-08-29] MEDS ORDERED: NITROGLYCERIN 50MG/D5W 250ML 1 BOT IV PRN (11:30)
[2024-08-29] MEDS ORDERED: TEMAZepam 30 MG CAP PO PRN (11:30)
[2024-08-29] MEDS ORDERED: acetaMINOPHEN WITH coDEINE 1 TAB TAB PO PRN ×2 (11:30)
[2024-08-29] MEDS: ondanSETRON 4MG INJ IVP PRN (12:00)
--- NOTE | 2024-08-29 13:22 | NUR ---
12:45 PT C/O ABDOMINAL PAIN AND RIGHT HIP PAIN, OBTAINED CODEIEN WITH TYLENOL FROM [employer]laICE[facility] PER DR. SIDDIQI ORDERS FR BOSSMAN, THEN PT REFUSED CODEINE BECAUSE IT WON'T MAKE HER FEEL GOOD. ALSO VERIFIED THAT CODEINE IS UNDER PT'S ALLERGY TO DRUGS. PT THEN STATES THAT PAIN HAS BEEN DECREASING AND THAT SHE RATHER NOT HAVE ANY PAIN MEDS AT THIS TIME, STATES SHE WILL NOTIFY NURSE IF PAIN DOES NOT SUBSIDE.
--- NOTE | 2024-08-29 15:20 | NUR ---
RE: CATH SITE REPORTED TO DR SIDDIQI THAT DRESSING FROM CATH SITE WAS SATURATED WITH BRIGHT RED BLOOD AT 1430. DSTAT WAS APPLIED WITH MANUAL PRESSURE X 10 MINS. SITE HAS NOT STOPPED OOZING. RECEIVED ORDERS TO APPLY PRESSURE DRESSING AND ADMIT PATIENT FOR OBSERVATION.
--- NOTE | 2024-08-29 18:05 | NUR ---
HANDOFF REPORT REPORT GIVEN TO CARLY LEWIS VIA TELEPHONE USING SBAR. ALL QUESTIONS ADDRESSED.
--- NOTE | 2024-08-29 18:30 | NUR ---
PATIENT TAKEN TO ROOM 203 VIA BED AND HANDOFF GIVEN TO CARLY LEWIS. PATIENT AAOX3, NO C/O PAIN AT THIS TIME. PRESSURE DRESSING TO LEFT GROIN DRY/INTACT. NO HEMATOMA OR BLEEDING NOTED. BILATERAL PEDAL PULSES STRONG.
[2024-08-30 00:20] VITALS: BP 132/62; PULSE 69; RESP 18; TEMP 98
[2024-08-30 03:20] VITALS: BP 125/68; PULSE 64; RESP 18; TEMP 98
--- NOTE | 2024-08-30 06:36 | PN ---
[facility] Cardiology Progress Note Cardiology progress note August 30 2024 Problems: 1. Recurrent angina 2. Remote non ST-elevation myocardial infarction status post stenting of the circumflex artery with a 30% RCA stenosis with subsequent InStent restenosis status post balloon angioplasty with a two point 5 mm balloon April 2024 and now recurrent InStent restenosis status post noncompliant balloon angioplasty with a 2.75 mm balloon and placement of a 2.75 mm x 8 mm stent InStent 3. Dyslipidemia 4. Hypertension previously treated with olmesartan currently diet controlled 5. Benign thyroid nodules 6. COVID infection 2019 and again 2020 with evidence of subsequent moderate COPD post infection 8. Pneumonia treated as an outpatient May 2024 Cardiac catheterization yesterday demonstrated a 80% InStent restenosis in the circumflex artery. She has undergone noncompliant balloon angioplasty with a 2.7 5 mm balloon and subsequent placement of a 2.75 x 8 mm stent at the site of InStent restenosis. Final results showed 0% residual stenosis with normal JALEESA flow. Postprocedure she did have some oozing of blood from the catheterization site and a decision was made to observe her overnight. This morning blood pressure is running 130/60 heart rate is in the 70s the patient is afebrile. The patient is continuing on aspirin clopidogrel pantoprazole. The patient has been pain-free overnight. There was no hematoma at the catheterization site. We will plan on removing her dressing and ambulating this morning. If tolerated she will be discharged home today and follow up with me in 1-2 weeks. Discharge instructions have been given. KEITH SIDDIQI MD Aug 30, 2024 06:36
[2024-08-30 08:00] VITALS: O2SAT 98
[2024-08-30 08:33] VITALS: BP 118/72; PULSE 71; RESP 16; TEMP 98
[2024-08-30] MEDS: ASPIRIN 81MG CHEW TAB PO SCH (09:10)
[2024-08-30] MEDS: PANTOPrazole 40 MG TAB DR PO SCH (09:10)
[2024-08-30] MEDS: cloPIDOgrel 75MG TAB PO SCH (09:10)
--- NOTE | 2024-08-30 10:28 | NUR ---
DISCHARGE INSTRUCTIONS WERE GIVEN TO THIS PATIENT AND SHE WAS IN AGREEMENT TO ATTEND FOLLOW UP APPT WITH DR. SIDDIQI. PIV TO LEFT AC WAS REMOVED WITH CATHETER INTACT. DRY DRESSING APPLIED. TELE RON WAS REMOVED AND RETURNED TO TELEMETRY. ALL BELONGINGS WERE ACCOUNTED FOR. PATIENT WAS TAKEN DOWN TO PRIVATE VEHICLE VIA WHEEL CHAIR.
== END 2024-08-30 09:36 | disposition home or self-care (01) ==
LOC: DAH 07:34 → 2AH 07:35
PROVIDERS: ADMIT Internal Medicine Cardiovascular Disease; ATTEND Internal Medicine Cardiovascular Disease
DX: I25.119 Atherosclerotic heart disease of native coronary artery with unspecified angina pectoris (principal); M25.511 Pain in right shoulder; I10 Essential (primary) hypertension; E78.5 Hyperlipidemia, unspecified; I25.2 Old myocardial infarction; J44.9 Chronic obstructive pulmonary disease, unspecified; E04.2 Nontoxic multinodular goiter; J18.9 Pneumonia, unspecified organism; E11.9 Type 2 diabetes mellitus without complications; Z86.16 Personal history of COVID-19; Z88.5 Allergy status to narcotic agent; Z79.899 Other long term (current) drug therapy
CPT/HCPCS: 80048; 83880; 85025; 85610; 85730; 81003; 36415 ×2; 71045; 93005; 93454; 96374; 85347; 82948; C1887; C1894; C1769; C1874; C1760; Q9965; G0378 ×15; J3490; J7030; J0360; J1644 ×2; J2250; J2405; Q9967; A4215; A4223 ×3; A4222; A4221; A4663; A4216; A4606; C9600; 99156; 99157; J0461